=== PATIENT | female | born 1960 | race Caucasian/White ===

== ENCOUNTER 2016-07-19 17:29 | Inpatient (IN) | payer BC, OTHER ==
[2016-07-19 17:29] VITALS: BMI 31.6
--- NOTE | 2016-07-19 22:07 | ED PDOC ---
Arrival/HPI <Kirk Lindquist - Last Filed: 07/19/16 23:35> - General Historian: Patient <Cha Casey A - Last Filed: 07/20/16 02:52> - General Chief Complaint: Dental Pain Time Seen by Provider: 07/19/16 21:36 - History of Present Illness Narrative History of Present Illness (Text): 07/19/16 22:06 55yo female referred to ED by her PMD for worsening jaw/chin pain. Patient states she was seen twice last week by her Dentist for dental abscess and started on Clindamycin. She noted she is day #5 on the antibiotics. She went to see her PMD today because of worsening pain and swelling of her jaw. States painful to eat. Denies fever, chills, any other complaint. 02:52 (Cha Casey) Past Medical History - Provider Review Nursing Documentation Reviewed: Yes - Infectious Disease Hx of Infectious Diseases: None - Tetanus Immunization Tetanus Immunization: Unknown - Past Medical History Past Medical History: No Previous - Psychiatric Hx Psychophysiologic Disorder: No Hx Anxiety: No Hx Bipolar Disorder: No Hx Depression: No Hx Emotional Abuse: No Hx Hallucinations: No Hx Panic Disorder: No Hx Post Traumatic Stress Disorder: No Hx Psychosis: No Hx Physical Abuse: No Hx Schizophrenia: No Hx Sexual Abuse: No Hx Substance Use: No - Surgical History Hx Tubal Ligation: Yes - Anesthesia Hx Anesthesia: Yes Hx Anesthesia Reactions: No Hx Malignant Hyperthermia: No - Suicidal Assessment Feels Threatened In Home Enviroment: No <Cha Casey - Last Filed: 07/20/16 02:52> Family/Social History - Physician Review Nursing Documentation Reviewed: Yes Family/Social History: Unknown Family HX Smoking Status: Never Smoked Hx Alcohol Use: No Hx Substance Use: No Hx Substance Use Treatment: No <Cha Casey A - Last Filed: 07/20/16 02:52> Allergies/Home Meds <Kirk Lindquist - Last Filed: 07/19/16 23:35> <Cha Casey A - Last Filed: 07/20/16 02:52> Allergies/Adverse Reactions: Allergies Penicillins Allergy (Verified 07/19/16 18:44) VOMITING Review of Systems - Physician Review All systems were reviewed & negative as marked: Yes - Review of Systems Constitutional: Normal Eyes: Normal ENT: Other (Dental/chin pain) Respiratory: Normal Cardiovascular: Normal Gastrointestinal: Normal Genitourinary Female: Normal Musculoskeletal: Normal Skin: Normal Neurological: Normal Endocrine: Normal Hemo/Lymphatic: Normal Psychiatric: Normal <Cha Casey - Last Filed: 07/20/16 02:52> Physical Exam Vital Signs Reviewed: Yes Temperature: Afebrile Blood Pressure: Normal Pulse: Regular Respiratory Rate: Normal Appearance: Positive for: Well-Appearing, Non-Toxic, Comfortable Pain Distress: None Mental Status: Positive for: Alert and Oriented X 3 - Systems Exam Head: Present: Atraumatic, Normocephalic Pupils: Present: PERRL Extroacular Muscles: Present: EOMI Conjunctiva: Present: Normal Mouth: Present: Moist Mucous Membranes, Trismus, Other (Diffuse chin swelling with overlaying erythema noted). No: Drooling, Normal Teeth (Right sided lower gum swelling surrounding the premolar and molar tooth) Neck: Present: Normal Range of Motion Respiratory/Chest: Present: Clear to Auscultation, Good Air Exchange. No: Respiratory Distress, Accessory Muscle Use Cardiovascular: Present: Regular Rate and Rhythm, Normal S1, S2. No: Murmurs Abdomen: Present: Normal Bowel Sounds. No: Tenderness, Distention, Peritoneal Signs Back: Present: Normal Inspection Upper Extremity: Present: Normal Inspection. No: Cyanosis, Edema Lower Extremity: Present: Normal Inspection. No: Edema Neurological: Present: GCS=15, CN II-XII Intact, Speech Normal Skin: Present: Warm, Dry, Normal Color. No: Rashes Psychiatric: Present: Alert, Oriented x 3, Normal Insight, Normal Concentration <Cha Casey A - Last Filed: 07/20/16 02:52> Vital Signs Temp Pulse Resp BP Pulse Ox 07/20/16 01:05 84 19 126/76 100 07/19/16 22:15 98.2 F 88 19 132/74 100 07/19/16 18:40 99.3 F 96 H 16 127/80 99 Medical Decision Making <Kirk Lindquist - Last Filed: 07/19/16 23:35> <Cha Casey - Last Filed: 07/20/16 02:52> ED Course and Treatment: 07/20/16 02:46 Pt referred to ED by her PMD for worsening dental abscess. Patient fail outpt abx. She have chin swelling suspicious for papa angina. She have no drooling. No dysphagia, afebrile in ED. She will be admitted for IV abx. Lab ordered Facial and soft tissue neck CT ordered Case was DW Dr. Dolan. She accepted pt into her service. CT findings as noted below. 07/20/16 02:48 IMPRESSION: 1. Irregular fluid collection in the right floor of the mouth measuring up to 3.9 x 1.4 x 2.8 cm which is confluent with the right submandibular gland and room designer space. Findings may reflect abscess and is concerning for Papa angina. 2. Mild subcutaneous edema of the submandibular neck. 3. Tooth #32 is unerupted and impacted with some surrounding lucency and is adjacent to the process in the floor of the mouth and may serve as the source of infection (Cha Casey) - Lab Interpretations Lab Results: 07/19/16 23:15 07/19/16 23:15 Lab Results 07/19/16 23:15: WBC 11.1 H, RBC 4.19, Hgb 14.0, Hct 40.0, MCV 95.5, MCH 33.4, MCHC 35.0, RDW 12.1, Plt Count 285, MPV 10.7, Gran % 80.1 H, Lymph % (Auto) 14.8 L, [place] % (Auto) 4.6, Eos % (Auto) 0.4 L, Baso % (Auto) 0.1, Gran # 8.91 H , Lymph # 1.6, [place] # 0.5, Eos # 0.0, Baso # 0.01, Sodium 139, Potassium 3.8, Chloride 99, Carbon Dioxide 27, Anion Gap 17, BUN 7, Creatinine 0.6, Est GFR ( Amer) > 60, Est GFR (Non-Af Amer) > 60, Random Glucose 102, Calcium 10.4 , Total Bilirubin 0.8, AST 27, ALT 17, Alkaline Phosphatase 134 H, Total Protein 9.3 H, Albumin 4.4, Globulin 4.8, Albumin/Globulin Ratio 0.9 L - RAD Interpretation Radiology Orders: 07/19/16 22:39 MAXILLOFACIAL W/CONTRAST [CT] Stat NECK SOFT TISSUE W/CONTRAST [CT] Stat - Medication Orders Current Medication Orders: Hydromorphone HCl (Dilaudid) 1 mg IVP Q4H PRN PRN Reason: Pain, moderate (4-7) Last Admin: 07/19/16 23:38 Dose: 1 MG IVP Administration Document 07/19/16 23:38 TITO (Rec: 07/19/16 23:38 TITO [email or web address]) Charges for Administration # of IVP Administrations 1 Aztreonam (Azactam 1 Gm) 100 mls @ 100 mls/hr IVPB Q8 POLLO PRN Reason: Protocol Stop: 07/20/16 06:59 Last Admin: 07/19/16 23:39 Dose: 100 MLS/HR eMAR Start Stop Document 07/19/16 23:39 TITO (Rec: 07/19/16 23:39 TITO [email or web address]) Intravenous Solution Start Date 07/19/16 Start Time 23:39 End Date 07/19/16 End time 00:09 Total Infusion Time -1410 Metronidazole (Flagyl) 50 mls @ 100 mls/hr IV Q8 POLLO PRN Reason: Protocol Stop: 07/24/16 22:31 Last Admin: 07/19/16 23:40 Dose: 100 MLS/HR eMAR Start Stop Document 07/19/16 23:40 TITO (Rec: 07/19/16 23:40 TITO [email or web address]) Intravenous Solution Start Date 07/19/16 Start Time 23:40 End Date 07/20/16 End time 00:10 Total Infusion Time 30 Dextrose/Sodium Chloride (Dextrose 5%/0.45% Ns 1000 Ml) 1,000 mls @ 100 mls/hr IV .Q10H POLLO Last Admin: 07/19/16 23:40 Dose: 100 MLS/HR eMAR Start Stop Document 07/19/16 23:40 TITO (Rec: 07/19/16 23:41 TITO [email or web address]) Intravenous Solution Start Date 07/19/16 Start Time 23:40 Aztreonam (Azactam 1 Gm) 100 mls @ 100 mls/hr IVPB STAT STA PRN Reason: Protocol Stop: 07/20/16 03:38 Clindamycin Phosphate 900 mg/ (Sodium Chloride) 106 mls @ 106 mls/hr IVPB STAT STA PRN Reason: Protocol Stop: 07/20/16 03:42 Ibuprofen (Motrin Tab) 400 mg PO Q6H POLLO Pantoprazole Sodium (Protonix Inj) 40 mg IVP DAILY POLLO Discontinued Medications Iohexol (Omnipaque 350 150 Ml) Confirm Administered Dose 150 ml .ROUTE .STK-MED ONE Stop: 07/20/16 00:43 - PA / SPECIAL MACHINE STITCHER / Resident Statement RAMSES has reviewed & agrees with the documentation as recorded. RAMSES has examined the patient and agrees with the treatment plan. <Kirk Lindquist - Last Filed: 07/19/16 23:35> Disposition/Present on Arrival <Kirk Lindquist - Last Filed: 07/19/16 23:35> - Present on Arrival Any Indicators Present on Arrival: No History of DVT/PE: No History of Uncontrolled Diabetes: No Urinary Catheter: No History of Decub. Ulcer: No History Surgical Site Infection Following: None - Disposition Have Diagnosis and Disposition been Completed?: Yes Disposition Time: 22:00 <Cha Casey - Last Filed: 07/20/16 02:52> - Disposition Diagnosis: Ludwigs angina, Facial cellulitis Disposition: HOSPITALIZED Condition: FAIR
[2016-07-19] MEDS: HYDROmorphone 1 mg/ml ISec IVP PRN (23:38)
[2016-07-19] MEDS: Aztreonam 1 Gm in NS 100mL 100 ML IVPB SCH (23:39)
[2016-07-19] MEDS: metroNIDAZOLE IV 250mg/50 ml 50 ML IV SCH (23:40)
[2016-07-19] MEDS: Dextrose 5%/0.45% NS 1,000 ML IV SCH (23:40)
[2016-07-20 00:11] LABS: ADD MANUAL DIFF? NO
[2016-07-20 00:16] LABS: BASO # 0.01 K/mm3 (0.0-2.0); BASO % 0.1 % (0.0-3.0); EOS % 0.4 % (1.5-5.0); GRAN # 8.91 (1.4-6.5); GRAN % 80.1 % (50.0-68.0); LYMPH # 1.6 (1.2-3.4); LYMPH % 14.8 % (22.0-35.0); MEAN CELL VOLUME 95.5 fL (80.0-105.0); MEAN CORPUSCULAR HEMOGLOBIN 33.4 pg (25.0-35.0); MEAN PLATELET VOLUME 10.7 fl (7.0-11.0); MONO # 0.5 (0.1-0.6); MONO % 4.6 % (1.0-6.0); PLATELET COUNT 285 10^3/uL (120.0-450.0); RED CELL DISTRIBUTION WIDTH 12.1 % (11.5-14.5); WHITE BLOOD COUNT 11.1 10^3/ul (4.5-11.0)
[2016-07-20 00:21] LABS: ALB/GLOB RATIO 0.9 (1.1-1.8); ALKALINE PHOSPHATASE 134 U/L (38-133); ALT/SGPT 17 U/L (7-56); AST/SGOT 27 U/L (15-39); BILIRUBIN,TOTAL 0.8 mg/dL (0.2-1.3); BLOOD UREA NITROGEN 7 mg/dL (7-21); CALCIUM 10.4 mg/dL (8.4-10.5); CARBON DIOXIDE 27 mmol/L (21-33); CHLORIDE 99 mmol/L (95-110); GFR AFRICAN-AMERICAN > 60; GLUCOSE,RANDOM 102 mg/dL (70-110); POTASSIUM 3.8 mmol/L (3.6-5.0); SODIUM 139 mmol/L (132-148); TOTAL PROTEIN 9.3 g/dL (5.8-8.3)
[2016-07-20] MEDS ORDERED: Aztreonam 1 Gm in NS 100mL 100 ML IVPB STA (02:39)
[2016-07-20] MEDS ORDERED: Pantoprazole 40 mg EC Tab PO STA (05:02)
--- NOTE | 2016-07-20 05:07 | CP.PCM.PN ---
Subjective - Date & Time of Evaluation Date of Evaluation: 07/20/16 Time of Evaluation: 05:03 - Subjective Subjective: Patient was seen at bedside because she complained of nausea.Has no other complaints now. Denies headache , dizziness, chest pain, sob, sweating , palpitations, abdominal pain, diarrhoea,fever or chills. States that she has history of H.Pylori.She has been on motrin at home. States that she took tylenol # 3 at home about 3 PM yesterday afternoon. This 55 year old woman was admitted for worsening Jaw/Chin pain , dental abscess/Facial cellulitis , Leukocytosis. Has PMH of H.Pylori infection, On NSAIds. Objective - Vital Signs/Intake and Output Vital Signs (last 24 hours): Temp Pulse Resp BP Pulse Ox 98.2 F 84 18 126/76 100 07/19/16 22:15 07/20/16 01:05 07/20/16 02:22 07/20/16 01:05 07/20/16 01:05 - Medications Medications: Current Medications Hydromorphone HCl (Dilaudid) 1 mg IVP Q4H PRN PRN Reason: Pain, moderate (4-7) Last Admin: 07/19/16 23:38 Dose: 1 mg Aztreonam (Azactam 1 Gm) 100 mls @ 100 mls/hr IVPB Q8 POLLO PRN Reason: Protocol Stop: 07/20/16 06:59 Last Admin: 07/19/16 23:39 Dose: 100 mls/hr Metronidazole (Flagyl) 50 mls @ 100 mls/hr IV Q8 POLLO PRN Reason: Protocol Stop: 07/24/16 22:31 Last Admin: 07/19/16 23:40 Dose: 100 mls/hr Dextrose/Sodium Chloride (Dextrose 5%/0.45% Ns 1000 Ml) 1,000 mls @ 100 mls/hr IV .Q10H POLLO Last Admin: 07/19/16 23:40 Dose: 100 mls/hr Ibuprofen (Motrin Tab) 400 mg PO Q6H POLLO Last Admin: 07/20/16 03:17 Dose: Not Given Ondansetron HCl (Zofran Inj) 4 mg IVP STAT STA Stop: 07/20/16 05:03 Pantoprazole Sodium (Protonix Inj) 40 mg IVP DAILY POLLO Pantoprazole Sodium (Protonix Ec Tab) 40 mg PO STAT STA Stop: 07/20/16 05:03 - Constitutional Appears: Well, No Acute Distress - Head Exam Head Exam: ATRAUMATIC, NORMAL INSPECTION, NORMOCEPHALIC - Eye Exam Eye Exam: Normal appearance - ENT Exam ENT Exam: Normal External Ear Exam Additional comments: Facial swelling+ - Neck Exam Neck Exam: Normal Inspection - Respiratory Exam Respiratory Exam: NORMAL BREATHING PATTERN - Cardiovascular Exam Cardiovascular Exam: absent: JVD - GI/Abdominal Exam GI & Abdominal Exam: absent: Distended - Rectal Exam Rectal Exam: Deferred - Back Exam Back Exam: NORMAL INSPECTION - Neurological Exam Neurological Exam: Alert, Oriented x3 - Psychiatric Exam Psychiatric exam: Normal Affect, Normal Mood - Skin Skin Exam: Normal Color Assessment and Plan - Assessment and Plan (Free Text) Assessment: A/P:Nausea-Hx H.Pylori. -Received tyleno # 3 earlier. -Received dilaudid earlier. -Has history of being on NSAIDs. Facial cellulitis. Dental abscess? Leukocytosis. Zofran 4 mg IV now. Protonix 40 mg PO now.
[2016-07-20] MEDS: metroNIDAZOLE IV 250mg/50 ml 50 ML IV SCH ×3 (06:13→22:51)
[2016-07-20] MEDS: HYDROmorphone 1 mg/ml ISec IVP PRN ×2 (06:29→21:22)
[2016-07-20] MEDS: Vancomycin 1gm in NS 250ml 250 ML IVPB SCH ×2 (06:29→17:37)
--- NOTE | 2016-07-20 09:01 | HP ---
HISTORY OF PRESENT ILLNESS: The patient is a 55-year-old who came to Emergency Room because of incre asing pain and increasing facial swelling. Was having some difficulty swallowing. No respiratory sy mptoms. No nausea or vomiting. The patient states that she had some issues with her teeth and she s aw her dentist twice last week. She was given antibiotic; they started her on clindamycin and today was the 5th day for her clindamycin, but she did not see any significant improvement. She went to jennifer Saunders. After examining her, he recommended her to go to Emergency Room to get IV antibiotics and further management. She denies any fever or chills. No history of nausea or vomiting. She huff s have difficulty chewing and swallowing because of pain. No history of headache, no blurry vision o r dizziness. PAST MEDICAL HISTORY: Significant for intermittent low back pain and neck pain. ALLERGIES: SHE IS ALLERGIC TO PENICILLIN. MEDICATIONS AT HOME: She is on clindamycin, ibuprofen and Flexeril. SOCIAL HISTORY: Denies smoking, drinking or alcohol use. REVIEW OF SYSTEMS: Significant for right mandibular and chin swelling and difficulty chewing. PHYSICAL EXAMINATION: GENERAL: She is awake and alert, communicative. VITAL SIGNS: She has temperature 99.3, pulse 96, respirations 16, blood pressure 127/80. LUNGS: Bilateral fair airflow, no rhonchi or crackle. HEART: S1, S2 audible. No murmur. ABDOMEN: Soft, nontender, no rebound, no guarding. NEUROLOGIC: She is awake and alert, communicative. FACE, HEAD AND NECK: She has swelling of the chin and the right mandibular area. ASSESSMENT: 1. Right facial cellulitis, rule out underlying abscess. 2. Failed outpatient treatment with clindamycin 3. Allergy to penicillin. PLAN: Will give her dose of Azactam and Flagyl to cover anaerobes. Start her on IV fluid. Give her an analgesic and anti-inflammatory. ID consult by Dr. Christopher and the ENT consult by Dr. Aileen nix been requested. Santo Dolan MD cc: [phone] TT: 07/20/2016 09:00:50 mn
--- NOTE | 2016-07-20 13:25 | PN ---
DATE: 07/20/2016 SUBJECTIVE: The patient is 55 years old, seen and examined. Still having difficulty chewing, openin g her mouth. She still has right mandibular discomfort and induration in the chin area. PHYSICAL EXAMINATION: GENERAL: She is awake and alert, communicative, unable to open her mouth. VITAL SIGNS: She has temperature 99.3, pulse 92, respirations 18, blood pressure 106/56. LUNGS: Bilateral good airflow, no rhonchi or crackle. HEART: S1, S2 audible. ABDOMEN: Soft, nontender, no rebound, no guarding. NEUROLOGIC: The patient is awake and alert, able to communicate. LABORATORY EXAM: There is no new lab available today. She had soft tissue neck and maxillofacial CT scan done, results are not available yet. ASSESSMENT: 1. Right lower wisdom tooth infection, rule out underlying abscess. 2. Facial cellulitis. 3. Dysphagia. PLAN: Currently, patient is on Azactam. She is getting IV fluid. She is on analgesic. She is gett ing metronidazole, Azactam and vanco. Awaiting ENT evaluation and we will follow up CBC and CMP in a .m. Santo Dolan MD cc: [phone] TT: 07/20/2016 13:24:49 Confirmation # [id number] Dictation # [id number]
[2016-07-20] MEDS: Aztreonam 1 Gm in NS 100mL 100 ML IVPB SCH ×2 (13:54→21:23)
[2016-07-20] MEDS: Dextrose 5%/0.45% NS 1,000 ML IV SCH ×2 (13:55→21:23)
--- NOTE | 2016-07-20 14:59 | CT ---
PROCEDURE: CT NECK WITH CONTRAST HISTORY: chin swelling COMPARISON: None TECHNIQUE: CT of the neck with intravenous contrast. Coronal and sagittal reformats generated. Intravenous contrast dose: 150 cc Omnipaque 350. Radiation dose: DLP 328.44 1 mGy-cm FINDINGS: NASOPHARYNX: Unremarkable. SUPRAHYOID NECK: Multiloculated fluid collection/abscess oral cavity, floor of the mouth measuring 2.1 x 3.1 x 2.2 cm. This is to the right of the midline. INFRAHYOID NECK: Unremarkable larynx, hypopharynx, and supraglottic space. Vocal cords intact. MASS: TheNone. GLANDS: The mass is indistinguishable from the right submandibular gland. Normal size thyroid gland, without nodule. LYMPH NODES: Normal. No lymphadenopathy. CERVICAL SPINE: No fracture or focal lesion. VASCULAR STRUCTURES: Unremarkable. OTHER FINDINGS: None. IMPRESSION: Multiloculated fluid collection/ mass likely abscess floor of the mouth on the right. Tissue planes in the men's furnishings salesperson space are obscured as is the expected normal analog, I will line of the right submandibular gland. No evidence of osseous abnormality associated with these findings. Concordant results (preliminary interpretation) provided by [facility]. Procedure Completed: 01:58. Preliminary ([facility]) Report: Dictated and Authenticated: 02:25. Final Interpretation: 14:57. July 20, 2016.
--- NOTE | 2016-07-20 15:27 | CP.PCM.CON ---
History of Present Illness - History of Present Illness History of Present Illness: 55 year old female with PMH of tubal ligation, history of bronchitis came in to [facility] for worsening pain of the right jaw area, with swelling of the right side of the face for the past 5 days. The patient was seen last week by her dentist for an apparent dental abscess and was also told that she might have an impacted wisdom tooth on the right. She was started on Clindamycin 5 days ago and has been on it since then but her symptoms continued to persist. She denies fever or chills, no nausea or vomiting, no chest pain, no SOB, no cough, has some sore throat, no headache or dizziness, no diarrhea, no chest pain, no SOB, no abdominal pain, no dysuria. She has difficulty eating but is able to swallow solids or liquids and does not have difficulty breathing. Infectious Diseases consult is requested to further evaluate and manage. Review of Systems - Review of Systems All systems: reviewed and no additional remarkable complaints except (as per HPI ) Past Patient History - Infectious Disease Hx of Infectious Diseases: None - Tetanus Immunizations Tetanus Immunization: Unknown - Past Social History Smoking Status: Never Smoked - CARDIAC Hx Heart Murmur: Yes (Congenital) - PULMONARY Hx Bronchitis: Yes (Seasonal -Winter) - MUSCULOSKELETAL/RHEUMATOLOGICAL Hx Falls: No - GASTROINTESTINAL Other/Comment: H.Pylori with Endoscopy - PSYCHIATRIC Hx Psychophysiologic Disorder: No Hx Anxiety: No Hx Bipolar Disorder: No Hx Depression: No Hx Emotional Abuse: No Hx Hallucinations: No Hx Panic Symptoms: No Hx Post Traumatic Stress Disorder: No Hx Psychosis: No Hx Physical Abuse: No Hx Schizophrenia: No Hx Sexual Abuse: No Hx Substance Use: No - SURGICAL HISTORY Hx Tubal Ligation: Yes - ANESTHESIA Hx Anesthesia: Yes Hx Anesthesia Reactions: No Hx Malignant Hyperthermia: No Meds Allergies/Adverse Reactions: Allergies Allergy/AdvReac Type Severity Reaction Status Date / Time Penicillins Allergy VOMITING Verified 07/19/16 18:44 - Medications Medications: Current Medications Hydromorphone HCl (Dilaudid) 1 mg IVP Q4H PRN PRN Reason: Pain, moderate (4-7) Last Admin: 07/19/16 23:38 Dose: 1 mg Metronidazole (Flagyl) 50 mls @ 100 mls/hr IV Q8 POLLO PRN Reason: Protocol Stop: 07/24/16 22:31 Last Admin: 07/19/16 23:40 Dose: 100 mls/hr Dextrose/Sodium Chloride (Dextrose 5%/0.45% Ns 1000 Ml) 1,000 mls @ 100 mls/hr IV .Q10H POLLO Last Admin: 07/19/16 23:40 Dose: 100 mls/hr Aztreonam (Azactam 1 Gm) 100 mls @ 100 mls/hr IVPB Q8 POLLO PRN Reason: Protocol Stop: 07/27/16 22:31 Vancomycin HCl (Vancomycin 1gm) 250 mls @ 167 mls/hr IVPB Q12H POLLO PRN Reason: Protocol Stop: 07/27/16 06:01 Ibuprofen (Motrin Tab) 400 mg PO Q6H [facility] Last Admin: 07/20/16 05:18 Dose: Not Given Pantoprazole Sodium (Protonix Inj) 40 mg IVP DAILY [facility] Physical Exam - Constitutional Appears: Non-toxic, No Acute Distress - Head Exam Head Exam: NORMAL INSPECTION - ENT Exam Additional comments: right sided facial and neck swelling with tenderness noted in the submental region - Neck Exam Neck exam: Negative for: Lymphadenopathy, Meningismus - Respiratory Exam Respiratory Exam: Decreased Breath Sounds - Cardiovascular Exam Cardiovascular Exam: +S1, +S2 - GI/Abdominal Exam GI & Abdominal Exam: Soft. absent: Tenderness Results - Vital Signs Recent Vital Signs: Last Vital Signs Temp 98.2 F 07/19/16 22:15 Pulse 84 07/20/16 01:05 Resp 18 07/20/16 02:22 BP 126/76 07/20/16 01:05 Pulse Ox 100 07/20/16 01:05 - Labs Result Diagrams: 07/19/16 23:15 07/19/16 23:15 Assessment & Plan - Assessment and Plan (Free Text) Plan: Assessment Sepsis secondary to right sided facial cellulitis R/O dental abscess R/O Jarred' s angina, R/O retropharyngeal abscess tubal ligation history of bronchitis Plan Started patient on Vancomycin, Azactam and Flagyl pending blood cx, CT of the face and neck Follow up ENT evaluation Will follow clinically
--- NOTE | 2016-07-20 15:56 | CT ---
PROCEDURE: CT MAXILLOFACIAL BONES WITH CONTRAST HISTORY: dental abscess COMPARISON: None. TECHNIQUE: Contiguous axial CT images of the maxillofacial bones were obtained following administration of IV contrast. Coronal and sagittal reformats were generated. Intravenous contrast Dose: 70 mL of Omnipaque 350 Radiation dose: Total exam DLP = 895.9 mGy-cm. FINDINGS: NASAL BONES: Unremarkable. ORBITS: Unremarkable. PARANASAL SINUSES/ MASTOIDS: Clear. MAXILLA: Unremarkable. MANDIBLE/ TEMPOROMANDIBULAR JOINTS: There is lucency seen around the unerupted right 3rd molar mandibular tooth likely represent periodontal abscess. There is adjacent soft tissue swelling. No evidence of other acute pathology at the mandible. SKULL BASE: Unremarkable. TEMPORAL BONES: Middle ears and mastoid grossly unremarkable. OTHER FINDINGS: None. IMPRESSION: Lucency surrounding the impacted and unerupted right mandibular 3rd molar tooth suspicious for periodontal abscess. Adjacent soft tissue swelling may represent phlegmon. . Otherwise no evidence of acute pathology. Preliminary report was submitted by [facility].
[2016-07-21] MEDS: HYDROmorphone 1 mg/ml ISec IVP PRN (01:21)
[2016-07-21] MEDS: metroNIDAZOLE IV 250mg/50 ml 50 ML IV SCH ×3 (05:07→23:06)
[2016-07-21] MEDS: Dextrose 5%/0.45% NS 1,000 ML IV SCH ×2 (05:08→23:57)
[2016-07-21] MEDS: Vancomycin 1gm in NS 250ml 250 ML IVPB SCH ×2 (05:10→18:50)
[2016-07-21] MEDS: Aztreonam 1 Gm in NS 100mL 100 ML IVPB SCH ×3 (05:10→21:22)
[2016-07-21] MEDS ORDERED: HYDROmorphone 0.5 mg/0.5 ml ISec IVP PRN (07:00)
[2016-07-21 07:39] LABS: ADD MANUAL DIFF? NO
[2016-07-21 07:50] LABS: BASO # 0.01 K/mm3 (0.0-2.0); BASO % 0.1 % (0.0-3.0); EOS # 0.1 (0.0-0.7); EOS % 0.9 % (1.5-5.0); GRAN # 7.88 (1.4-6.5); GRAN % 80.7 % (50.0-68.0); LYMPH # 1.2 (1.2-3.4); MEAN CELL VOLUME 94.3 fL (80.0-105.0); MEAN CORPUSCULAR HEMOGLOBIN 32.3 pg (25.0-35.0); MEAN CORPUSCULAR HGB CONC 34.2 g/dl (31.0-37.0); MONO # 0.6 (0.1-0.6); MONO % 6.3 % (1.0-6.0); PLATELET COUNT 255 10^3/uL (120.0-450.0); RED CELL DISTRIBUTION WIDTH 11.8 % (11.5-14.5); WHITE BLOOD COUNT 9.8 10^3/ul (4.5-11.0)
[2016-07-21 08:10] LABS: ALB/GLOB RATIO 0.9 (1.1-1.8); ALKALINE PHOSPHATASE 100 U/L (38-133); ALT/SGPT 12 U/L (7-56); AST/SGOT 22 U/L (15-39); BILIRUBIN,TOTAL 0.6 mg/dL (0.2-1.3); BLOOD UREA NITROGEN 5 mg/dL (7-21); CALCIUM 9.2 mg/dL (8.4-10.5); CARBON DIOXIDE 25 mmol/L (21-33); CHLORIDE 102 mmol/L (98-107); GFR AFRICAN-AMERICAN > 60; GLUCOSE,RANDOM 119 mg/dL (70-110); POTASSIUM 3.6 mmol/L (3.6-5.0); SODIUM 136 mmol/L (132-148); TOTAL PROTEIN 7.5 g/dL (5.8-8.3)
--- NOTE | 2016-07-21 10:50 | CP.PCM.PN ---
Subjective - Date & Time of Evaluation Date of Evaluation: 07/21/16 Time of Evaluation: 07:35 - Subjective Subjective: Patient continues to have swelling and pain on the right side of the face and underneath the chin, with some difficulty and pain on swallowing, although it is slightly better. No fever, no nausea, no headaches. Objective - Vital Signs/Intake and Output Vital Signs (last 24 hours): Temp Pulse Resp BP Pulse Ox 99.7 F H 98 H 20 117/72 97 07/21/16 08:38 07/21/16 08:38 07/21/16 08:38 07/21/16 08:38 07/21/16 08:38 Intake and Output: 07/21/16 07/21/16 06:59 18:59 Intake Total 300 1500 Output Total 6 Balance 294 1500 - Medications Medications: Current Medications Hydromorphone HCl (Dilaudid) 0.5 mg IVP Q4H PRN PRN Reason: Pain, moderate (4-7) Metronidazole (Flagyl) 50 mls @ 100 mls/hr IV Q8 POLLO PRN Reason: Protocol Stop: 07/24/16 22:31 Last Admin: 07/21/16 05:07 Dose: 100 mls/hr Dextrose/Sodium Chloride (Dextrose 5%/0.45% Ns 1000 Ml) 1,000 mls @ 100 mls/hr IV .Q10H POLLO Last Admin: 07/21/16 05:08 Dose: 100 mls/hr Aztreonam (Azactam 1 Gm) 100 mls @ 100 mls/hr IVPB Q8 POLLO PRN Reason: Protocol Stop: 07/27/16 14:01 Last Admin: 07/21/16 05:10 Dose: 100 mls/hr Vancomycin HCl (Vancomycin 1gm) 250 mls @ 167 mls/hr IVPB Q12H POLLO PRN Reason: Protocol Stop: 07/27/16 06:01 Last Admin: 07/21/16 05:10 Dose: 167 mls/hr Ibuprofen (Motrin Tab) 400 mg PO Q6H POLLO Last Admin: 07/21/16 10:08 Dose: 400 mg Ondansetron HCl (Zofran Inj) 4 mg IVP Q6H PRN PRN Reason: Nausea/Vomiting Last Admin: 07/20/16 17:37 Dose: 4 mg Pantoprazole Sodium (Protonix Inj) 40 mg IVP DAILY POLLO Last Admin: 07/21/16 10:08 Dose: 40 mg - Labs Labs: 07/21/16 07:00 07/21/16 07:00 - Constitutional Appears: Non-toxic, No Acute Distress - Head Exam Head Exam: NORMAL INSPECTION - ENT Exam Additional comments: swelling on the right side of the jaw and under the chin with tenderness noted - Respiratory Exam Respiratory Exam: Decreased Breath Sounds. absent: Rales - Cardiovascular Exam Cardiovascular Exam: +S1, +S2 - GI/Abdominal Exam GI & Abdominal Exam: Soft. absent: Tenderness Assessment and Plan - Assessment and Plan (Free Text) Plan: Assessment Sepsis secondary to right sided facial cellulitis associated with periodontal abscess around the 3rd molar on the lower right jaw and multiloculated abscess on the floor of the mouth tubal ligation history of bronchitis Plan continue Vancomycin, Azactam and Flagyl (day 2); blood cx are negative; reviewed CT of the face and neck - awaiting ENT evaluation and recommendations ( ie. drainage of the abscesses) Will continue to follow clinically
[2016-07-21] MEDS ORDERED: Lidocaine 1%/Epinephrine 1:100000 30 ml vial IJ STA (11:08)
--- NOTE | 2016-07-21 20:43 | PN ---
DATE: 07/21/2016 SUBJECTIVE: The patient is a 55-year-old, seen and examined. Was being seen by ENT. Was trying to drain the pus in her periodontal area. PHYSICAL EXAMINATION: VITAL SIGNS: The patient has a temperature of 99.7, pulse 90, respirations 20, blood pressure 117/72 . LUNGS: Bilateral fair airflow, no rhonchi or crackle. HEART: S1, S2 audible. No murmur. ABDOMEN: Soft, nontender, no rebound, no guarding. NEUROLOGIC: The patient is awake and alert, communicative. EXTREMITIES: Bilateral legs, no edema. LABORATORY: WBC is 9.8, hemoglobin 11.3, hematocrit 33, platelets 255. Chemistry: Sodium 136, pota ssium 3.6, chloride 102, CO2 25, BUN 5, creatinine 0.5, blood sugar 119. ASSESSMENT: 1. Right wisdom tooth infection with multiloculated fluid collection, mass-like abscess on the floor of the mouth on the right and tissue in the masticated space are obscured. 2. Leukocytosis, improving. PLAN: The patient is being seen by ENT and they are trying to aspirate and send cultures. I also sp papito to patient's dentist, whose name is and he thinks that we should continue antibiotic an d he can take care of tooth extraction once her abscess improves. We will reevaluate the patient in a.m. Santo Dolan MD cc: [id number] TT: 07/21/2016 20:43:25 Confirmation # [id number] Dictation # [id number] kathy
--- NOTE | 2016-07-21 22:14 | CON ---
DATE: 07/21/2016 Room 378, bed 2. HISTORY OF PRESENT ILLNESS: The patient is a 55-year-old female with a past medical history of tubal ligation, history of bronchitis, seen at the [facility] with worsening pain of the right jaw area and swelling of the right side of the face for 5 days on 07/19. The patient was seen prior by a dentist for an apparent dental abscess and was told she might have an impacted wisdom tooth on the right. Started on clindamycin 5 days. However, the patient's symptoms continued to persist. Sh e did not have any fever or chills. The patient was seen and examined today. The patient has been o n IV antibiotics with vancomycin, Azactam, as well as Flagyl. The patient denies any chest pain, liz rtness of breath, nausea, vomiting, diarrhea, headaches, but does state she has some issues eating be cause she cannot open her mouth much. Infectious disease was consulted, who is contributing to her c are at this time. ALLERGIES: PENICILLIN. SOCIAL HISTORY: Never smoked, no smoking history. Denies alcohol use. VITAL SIGNS: Reviewed. Vital signs today are unremarkable. PHYSICAL EXAMINATION: Alert and oriented x 3. The patient has no acute distress. EYES: EOMI, PERRLA. MOUTH: The patient has trismus. Able to open the mouth approximately 2-3 fingerbreadths. Moist muc ous membranes. Floor of mouth swelling is noted. Tongue is midline. It is not retroflexed. Able to see the soft palate and uvula. No uvula deviation. Examination of the patient's teeth: Unable t o see direct area were a collection could be drained from the teeth. The patient does admit that she does have an impacted unerupted molar tooth. NECK: Submental swelling bilaterally. No palpable fluctuance on exam. Trachea appears to be midlin e at this time. RESPIRATORY: No stridor, nonlabored breathing, aerating well. SPEECH: Normal. RADIOLOGY: 1. The patient had a CT maxillofacial with bone contrast on 07/19/2016. Report noted by Dr. Meghan Leal. States that mandible, temporal mandible joints there is lucency around the unerupted right 3rd molar mandible tooth, likely represents a periodontal abscess. There is adjacent soft tissue swe lling. No evidence of acute pathology at the mandible. 2. The patient also had a CT of the neck with contrast performed on 07/19 as well. In the suprahyoi d neck it was noted to have a multiloculated fluid collection/abscess of the oral cavity floor of sangeetha th measuring 2.1 x 3.1 x 2.2 cm. This is on the right midline. Tissue planes of the space are obscured, as is expected on normal analog. No evidence of osseous abnormality associated with these findings, read by Dr. Refugio Pepper 07/20/2016. 3. Needle aspiration. Informed consent was obtained from the patient and all risks and benefits of the procedure were discussed with the patient. An attempt was made to needle aspiration of the absce ss from the submental area from direct skin. This area was prepped and cleansed in a normal sterile fashion. 1% lidocaine with epinephrine 1:100,000 was injected into the skin and overlying area as an anesthetic. Next, an 18-gauge needle was inserted into the swelling. However, slight purulent drainage was aspir ated with some blood, approximately 1 mL, and sent for cultures. The patient tolerated the procedure well. Does feel . No complications. Assistance with nursing at that time. ASSESSMENT AND PLAN: The patient is a 55-year-old female with a possible right molar abscess, as wel l as abscess collection of that was in the floor of the mouth. Recommend continuing antibiotics per infectious diseases. Recommend following cultures that were res trained. Recommend a stat consult oral maxillofacial surgery, as the patient will likely need dental surgery to remove the impacted molar which may be the source of infection. Also noting the patient has been on IV antibiotics with some improvement. The patient is not currently on IV steroids or Tor adol. Recommend a stat dose of IV Decadron 10 mg, as well as 15 mg of Toradol IV to help with the pa vick's trismus. Would recommend steroids around the clock per the primary team, as well as some Tor adol per the primary team to help with the trismus. In the meantime, nursing states the patient may likely be sent through dental to have dental surgery resolve this issue. Monitor the patient floor o f the mouth as well as vitals, and white count going forward. Mahesh Gallagher DO cc: [id number] TT: 07/21/2016 22:13:28 Confirmation # [id number] Dictation # [id number] jn
[2016-07-22] MEDS: metroNIDAZOLE IV 250mg/50 ml 50 ML IV SCH ×2 (05:22→14:36)
[2016-07-22] MEDS: Aztreonam 1 Gm in NS 100mL 100 ML IVPB SCH ×2 (05:51→13:11)
[2016-07-22] MEDS: Vancomycin 1gm in NS 250ml 250 ML IVPB SCH (06:51)
[2016-07-22] MEDS ORDERED: Pantoprazole 40 mg EC Tab PO SCH (07:30)
[2016-07-22 07:55] LABS: ADD MANUAL DIFF? NO
[2016-07-22 08:02] LABS: BASO # 0.01 K/mm3 (0.0-2.0); BASO % 0.1 % (0.0-3.0); EOS % 0.4 % (1.5-5.0); GRAN # 6.58 (1.4-6.5); HEMATOCRIT 33.6 % (36.0-48.0); LYMPH % 21.7 % (22.0-35.0); MEAN CELL VOLUME 94.1 fL (80.0-105.0); MEAN CORPUSCULAR HEMOGLOBIN 32.2 pg (25.0-35.0); MEAN CORPUSCULAR HGB CONC 34.2 g/dl (31.0-37.0); MEAN PLATELET VOLUME 10.1 fl (7.0-11.0); MONO # 0.5 (0.1-0.6); MONO % 5.8 % (1.0-6.0); PLATELET COUNT 279 10^3/uL (120.0-450.0); RED CELL DISTRIBUTION WIDTH 11.6 % (11.5-14.5); WHITE BLOOD COUNT 9.1 10^3/ul (4.5-11.0)
[2016-07-22 08:42] LABS: ALB/GLOB RATIO 0.9 (1.1-1.8); ALKALINE PHOSPHATASE 103 U/L (38-133); ALT/SGPT 13 U/L (7-56); AST/SGOT 26 U/L (15-39); BILIRUBIN,TOTAL 0.5 mg/dL (0.2-1.3); BLOOD UREA NITROGEN 6 mg/dL (7-21); CALCIUM 9.7 mg/dL (8.4-10.5); CARBON DIOXIDE 28 mmol/L (21-33); CHLORIDE 106 mmol/L (98-107); GFR AFRICAN-AMERICAN > 60; GLUCOSE,RANDOM 92 mg/dL (70-110); POTASSIUM 3.6 mmol/L (3.6-5.0); SODIUM 142 mmol/L (132-148); TOTAL PROTEIN 7.5 g/dL (5.8-8.3)
--- NOTE | 2016-07-22 12:46 | CP.PCM.PN ---
Subjective - Date & Time of Evaluation Date of Evaluation: 07/22/16 Time of Evaluation: 10:30 - Subjective Subjective: Patient was seen by ENT yesterday and the submental fluid collection was aspirated by needle, sent for cultures. States her jaw is a little bit improved , less pain on swallowing, no fevers overnight. Objective - Vital Signs/Intake and Output Vital Signs (last 24 hours): Temp Pulse Resp BP Pulse Ox 98.4 F 82 20 126/84 98 07/22/16 09:06 07/22/16 09:06 07/22/16 09:06 07/22/16 09:06 07/22/16 09:06 Intake and Output: 07/22/16 07/22/16 06:59 18:59 Intake Total 1560 Balance 1560 - Medications Medications: Current Medications Hydromorphone HCl (Dilaudid) 0.5 mg IVP Q4H PRN PRN Reason: Pain, moderate (4-7) Metronidazole (Flagyl) 50 mls @ 100 mls/hr IV Q8 POLLO PRN Reason: Protocol Stop: 07/24/16 22:31 Last Admin: 07/22/16 05:22 Dose: 100 mls/hr Dextrose/Sodium Chloride (Dextrose 5%/0.45% Ns 1000 Ml) 1,000 mls @ 100 mls/hr IV .Q10H POLLO Last Admin: 07/21/16 23:57 Dose: 100 mls/hr Aztreonam (Azactam 1 Gm) 100 mls @ 100 mls/hr IVPB Q8 POLLO PRN Reason: Protocol Stop: 07/27/16 14:01 Last Admin: 07/22/16 05:51 Dose: 100 mls/hr Vancomycin HCl (Vancomycin 1gm) 250 mls @ 167 mls/hr IVPB Q12H POLLO PRN Reason: Protocol Stop: 07/27/16 06:01 Last Admin: 07/22/16 06:51 Dose: 167 mls/hr Ibuprofen (Motrin Tab) 400 mg PO Q6H PRN PRN Reason: Pain, moderate (4-7) Ondansetron HCl (Zofran Inj) 4 mg IVP Q6H PRN PRN Reason: Nausea/Vomiting Last Admin: 07/20/16 17:37 Dose: 4 mg Pantoprazole Sodium (Protonix Ec Tab) 40 mg PO ACB POLLO Last Admin: 07/22/16 09:46 Dose: 40 mg - Labs Labs: 07/22/16 07:40 07/22/16 07:40 - Constitutional Appears: Non-toxic, No Acute Distress - Head Exam Head Exam: NORMAL INSPECTION - ENT Exam Additional comments: decreased swelling on the submental area - Respiratory Exam Respiratory Exam: Decreased Breath Sounds - Cardiovascular Exam Cardiovascular Exam: +S1, +S2 - GI/Abdominal Exam GI & Abdominal Exam: Soft. absent: Tenderness Assessment and Plan - Assessment and Plan (Free Text) Plan: Assessment Sepsis secondary to right sided facial cellulitis associated with periodontal abscess around the 3rd molar on the lower right jaw and multiloculated abscess on the floor of the mouth S/P needle drainage of the submental fluid collection POD #1, growing gram positive cocci in clusters tubal ligation history of bronchitis Plan continue Vancomycin, Azactam and Flagyl (day 3); blood cx are negative; follow up final abscess culture results (await results prior to recommending PO antibiotic options) Patient should see dentist for drainage of the periodontal abscess Discussed with Dr. Dolan Will continue to follow clinically
--- NOTE | 2016-07-22 14:33 | DS ---
The patient is a 55-year-old, seen and examined. She states she feels a lot better. She is able to open her jaw. She is unable to talk. She does have difficulty in chewing, however, she wants to try regular food. She is tired of pureed food. PHYSICAL EXAMINATION: VITAL SIGNS: She is afebrile, pulse 82, respirations 20, blood pressure 126/84. LUNGS: Bilateral good airflow. No rhonchi or crackle. HEART: S1, S2 audible. No murmur. ABDOMEN: Soft, nontender, no rebound, no guarding. NEUROLOGIC: She is awake and alert, communicative. HEENT: She still has induration in the submental area and also in the right angle of mandible. LABORATORY EXAMINATION: WBC 9.1, hemoglobin 11.5, hematocrit 33.6, platelet of 279. Chemistry: Sod ium 142, potassium 3.6, chloride 106, CO2 28, BUN 6, creatinine 0.5, blood sugar of . ASSESSMENT: 1. Right wisdom tooth infection and abscess. 2. Leukocytosis, improving. 3. Periodontal abscess with multiloculated fluid collection, mass-like abscess on the floor of the [facility], status post incision and drainage by ENT. PLAN: The patient states she is feeling comfortable. I advanced her diet. Discontinue her IV fluid . Discussed with ID. If patient tolerates her food, she can be discharged later on p.o. Avelox 400 daily for a week and she will follow up with her dentist on Tuesday for tooth extraction. Santo Dolan MD cc: [id number] TT: 07/22/2016 14:32:59 en
--- NOTE | 2016-07-22 16:14 | PN ---
DATE: 07/22/2016 SUBJECTIVE: The patient was seen and examined. Chart has been reviewed. The patient has remained s table, afebrile. She reports approximately 80% improvement in her pain and swelling. She reports ap petite, being able to handle secretions without difficulty. She denies any stridor, shortness of kortney ath, drooling, odynophagia, dysphagia, change in voice. She reports her tooth pain is improved. OBJECTIVE: VITAL SIGNS: Temperature is 98.4, pulse is 82, blood pressure is 126/84, respiratory rate is 20, oxy gen saturation is 98% on room air. GENERAL: The patient is an age appropriate 55-year-old female. She is in no acute distress. She is answering questions appropriately in full sentences. There is no stridor. There is no hoarseness. There is no drooling. HEAD: Atraumatic, normocephalic. Face itself is symmetrical. EARS: Her auricles are unremarkable bilaterally. There are no masses or lesions noted. NOSE: The nares are patent. ORAL CAVITY AND OROPHARYNX: The patient has approximately a 3 fingerbreadth trismus. Her mucous mem branes are moist. Her tongue is mobile and midline. Floor of mouth is soft with no edema. Uvula is midline without deviation. There is no bulge to the soft palate or posterior oropharyngeal wall. T here is no drainage from any odontologic sores or purulence in the mouth. NECK: The patient has noted submental induration. No palpable clinical fluctuance. Trachea is midl ine. No restriction to neck movement. LABORATORY VALUES: White count is 9.1, hemoglobin is 11.5, platelets are unremarkable. ASSESSMENT AND PLAN: The patient is a 55-year-old female who presented with neck swelling, odontolog ic pain. She was found to have a right mandibular odontologic abscess with associated collection in the administration physician space. The patient had undergone aspiration and drainage yesterday and now feels appr oximately 80% improved with improved floor of mouth swelling, trismus, and neck induration. She has been discharged from the hospital per the medical service with outpatient followup on Tuesday with an oral surgeon. PLAN: Recommend continue conservative care for the patient at this time in the form of antibiotics. She was instructed to use warm compresses frequently. She was recommended she should follow up with an oral surgeon in the next day to discuss extraction of the infected tooth. She can have pain cont rol as needed and follow up in the outpatient center to ensure clinical resolution. Findings and joi n were discussed in detail with the patient. Thank you again for allowing us to participate in the patient's care. Kin Ledesma DO cc: [id number] TT: 07/22/2016 16:13:50 Confirmation # [id number] Dictation # [id number] sn
[2016-07-22 18:12] VITALS: BP 127/97; PULSE 100; RESP 19; TEMP 98.6; O2SAT 96
== END 2016-07-22 18:36 | disposition home or self-care (01) | DRG 158 ==
LOC: ED 17:29 → ERH 23:49 → 3RSO 07-20 02:19
PROVIDERS: ADMIT Internal Medicine; ATTEND Internal Medicine
PROC: 0W953ZZ Drainage of Lower Jaw, Percutaneous Approach (ICD-10-PCS; principal; 2016-07-21)
DX: K04.7 Periapical abscess without sinus (principal); L03.211 Cellulitis of face; R13.10 Dysphagia, unspecified; Z88.0 Allergy status to penicillin; Z98.51 Tubal ligation status